=== PATIENT | male | born 1940 | race Caucasian/White ===

== ENCOUNTER 2018-01-12 12:52 | Emergency (ER) | payer MEDICARE, OTHER ==
[2018-01-12] MEDS: HYDROCODONE/APAP (5/325) TAB PO (13:51)
[2018-01-12] MEDS: ONDANSETRON (ODT) 4 MG TAB ODT (15:03)
[2018-01-12] MEDS: morphine 10 MG INJ IM (15:08)
== END 2018-01-12 17:54 | disposition home or self-care (01) ==
LOC: FTE 12:52 → E/R 17:54
DX: S42.292A Other displaced fracture of upper end of left humerus, initial encounter for closed fracture (principal); S42.212A Unspecified displaced fracture of surgical neck of left humerus, initial encounter for closed fracture; S02.2XXA Fracture of nasal bones, initial encounter for closed fracture; S02.401A Maxillary fracture, unspecified side, initial encounter for closed fracture; I10 Essential (primary) hypertension; E11.9 Type 2 diabetes mellitus without complications; J45.909 Unspecified asthma, uncomplicated; W01.0XXA Fall on same level from slipping, tripping and stumbling without subsequent striking against object, initial encounter; Y92.009 Unspecified place in unspecified non-institutional (private) residence as the place of occurrence of the external cause; Z79.01 Long term (current) use of anticoagulants; Z79.84 Long term (current) use of oral hypoglycemic drugs
CPT/HCPCS: 70450; 70486; 73030; 73060; 73070; 96372; 99285-25